=== PATIENT | female | born 1985 | race African-American/Black ===

== ENCOUNTER 2016-11-21 19:12 | Emergency (ER) | payer OTHER ==
[~2016-11-21] VITALS: Ht 152.4 cm; Wt 39.0 kg
[2016-11-21] MEDS ORDERED: SODIUM CHLORIDE 0.9% 1,000 ML IV ONE (19:37)
[2016-11-21 20:05] LABS: BASOPHILS % 0.8 % (0.0-2.0); DIFFERENTIAL COMMENT 0; EOSINOPHILS % 0.2 % (0.0-5.0); HEMATOCRIT. 35.8 % (36.0-48.0); HEMOGLOBIN. 11.4 g/dL (12.0-16.0); LYMPHOCYTES % 10.8 % (20.0-50.0); MEAN CORPUSCULAR HEMOGLOBIN 32.8 pg (28.0-32.0); MEAN CORPUSCULAR HGB CONC 31.9 g/dL (31.0-37.0); MEAN CORPUSCULAR VOLUME 102.6 fL (81.0-99.0); MEAN PLATELET VOLUME 10.4 fl (7.4-10.4); MONOCYTES % 5.2 % (2.0-8.0); PLATELET 174 x1000/uL (130-400); RED BLOOD CELL COUNT 3.49 mill/uL (4.2-5.4); RED CELL DISTRIBUTION WIDTH 13.1 % (11.6-14.6); WHITE BLOOD COUNT 3.9 x1000/uL (4.5-11.0)
[2016-11-21 20:08] LABS: INR 1.1; PROTHROMBIN TIME 11.4 sec
[2016-11-21 20:11] LABS: ALBUMIN 3.5 g/dL (3.4-5.0); ANION GAP 22; CALCIUM 6.5 mg/dL (8.5-10.1); CARBON DIOXIDE 20 mEq/L (21-32); CHLORIDE 105 mEq/L (98-107); INDEX HEMOLYSI 1 (1-3); INDEX ICTERIC 1 (1-4); INDEX LIPEMIC 1 (1-3)
[2016-11-21 20:14] LABS: ALANINE AMINOTRANSFERASE 11 IU/L (13-61); CARBAMAZEPINE 9.1 ug/mL (4-12); eGFR 6 mL/min (>60)
[2016-11-21 20:16] LABS: UREA NITROGEN BLOOD 96 mg/dL (7-21)
[2016-11-21] MEDS ORDERED: LORAZEPAM 2MG/ML CPJ IV ONE (20:30)
[2016-11-21] MEDS ORDERED: INSULIN REGULAR (HUMULIN R) 300UNITS/3ML IV ONE (21:30)
[2016-11-21] MEDS ORDERED: SODIUM BICARBONATE 8.4% 1 MEQ/ML 50ML SYR IV ONE (21:30)
[2016-11-21] MEDS ORDERED: DEXTROSE 50% WATER 50ML SYRINGE IV ONE (21:30)
[2016-11-21] MEDS ORDERED: SODIUM POLYSTYRENE SULFONATE 15 G/60 ML BOT PO ONE (21:30)
[2016-11-21] MEDS ORDERED: CALCIUM GLUCONATE 1,000 MG in DEXT 5% WATER 100 ML IV ONE (21:30)
[2016-11-21 23:13] LABS: CALCIUM 6.1 mg/dL (8.5-10.1)
[2016-11-22 00:31] VITALS: BP 153/95
== END 2016-11-22 01:16 | disposition short-term general hospital (02) ==
LOC: ER 19:12
DX: N17.9 Acute kidney failure, unspecified (principal); E87.5 Hyperkalemia; F84.0 Autistic disorder; I10 Essential (primary) hypertension; I49.3 Ventricular premature depolarization; M32.9 Systemic lupus erythematosus, unspecified; R56.9 Unspecified convulsions; Z79.4 Long term (current) use of insulin
CPT/HCPCS: 36415; 70450; 80048; 80053; 80156; 82962; 85025; 85610; 93005; 96361; 96365; 96375; 99291; J0610; J1815; J2060; J3490; J7030; Z7610; J7060